=== PATIENT | female | born 1950 | race Two or more races ===

== ENCOUNTER 2020-03-19 17:24 | Emergency (ER) | payer MEDICARE, OTHER ==
[~2020-03-19] VITALS: Ht 167.6 cm; Wt 75.0 kg
[2020-03-19] MEDS ORDERED: POLY17PO47 PO (17:35)
[2020-03-19] MEDS ORDERED: TELM40 PO (17:35)
[2020-03-19] MEDS ORDERED: AMLO-257 PO (17:35)
[2020-03-19] MEDS ORDERED: ACET-66 PO (17:35)
[2020-03-19] MEDS ORDERED: MIRT-89 PO (17:35)
[2020-03-19] MEDS ORDERED: XALA2.5OS OU (17:35)
[2020-03-19] MEDS ORDERED: DOCU-202 PO (17:35)
[2020-03-19] MEDS ORDERED: AMIT75 PO (17:35)
[2020-03-19] MEDS ORDERED: GABA-1216 PO (17:35)
[2020-03-19] MEDS ORDERED: TRAM50TA4 PO (17:35)
[2020-03-19] MEDS ORDERED: TIMO.5OS OU (17:35)
[2020-03-19] MEDS ORDERED: CARV25 PO (17:35)
[2020-03-19] MEDS ORDERED: HYDR-2924 PO (17:35)
[2020-03-19] MEDS ORDERED: FOLI0.8T43 PO (17:35)
[2020-03-19 18:42] LABS: BASOPHILS % (AUTO) 0.9 % (0.0-2.0); EOSINOPHILS % (AUTO) 3.4 % (1.0-6.0); HEMOGLOBIN 11.5 g/dL (12.0-16.0); LYMPHOCYTES # (AUTO) 2.5 K/uL (1.0-4.8); LYMPHOCYTES % (AUTO) 24.3 % (22.0-44.0); MEAN CORPUSCULAR HEMOGLOBIN 33.6 pg (26.0-34.0); MEAN CORPUSCULAR HGB CONC 32.8 G/dL (31.0-37.0); MEAN CORPUSCULAR VOLUME 103 fL (80-100); MONOCYTES # (AUTO) 1.1 K/uL (0.1-1.0); NEUTROPHILS # (AUTO) 6.1 K/uL (1.8-7.7); NEUTROPHILS % (AUTO) 60.4 % (40.0-70.0); PLATELET COUNT (AUTO) 159 K/uL (150-450); RED BLOOD CELL COUNT(AUTO) 3.41 MIL/uL (4.00-5.20); RED CELL DISTRIBUTION WIDTH 15.5 % (11.5-14.5)
[2020-03-19 18:49] LABS: ANION GAP 11 mmol/L (8-16); CALCIUM, TOTAL 8.8 mg/dL (8.8-10.5); CARBON DIOXIDE 30 mmol/L (22-29); CHLORIDE 97 mmol/L (98-107); CREATININE 11.12 mg/dL (0.60-1.30); GLOMERULAR FILTR. RATE CALC 3 mL/min (>60); GLUCOSE,RANDOM 136 mg/dL (70-110); POTASSIUM 4.3 mmol/L (3.5-5.1); SODIUM SERUM 138 mmol/L (136-145); UREA NITROGEN, BLOOD 57 mg/dL (7-18)
[2020-03-19 18:55] LABS: ALANINE AMINOTRANSFERASE 14 U/L (12-78); ALBUMIN 2.9 g/dL (3.4-5.0); ALKALINE PHOSPHATASE 156 U/L (46-116); ASPARTATE AMINOTRANSFERASE 16 U/L (15-37); BILIRUBIN,TOTAL 0.4 mg/dL (0.1-1.0); TOTAL PROTEIN, SERUM 6.1 g/dL (6.4-8.2)
[2020-03-19 22:11] VITALS: BP 130/78
[2020-03-20 08:07] LABS: GLUCOSE,POINT OF CARE 145 MG/DL (70-110)
== END 2020-03-19 22:12 | disposition home or self-care (01) ==
LOC: EMS 17:24
DX: F32.9 Major depressive disorder, single episode, unspecified (principal); E11.9 Type 2 diabetes mellitus without complications; E78.00 Pure hypercholesterolemia, unspecified; I10 Essential (primary) hypertension
CPT/HCPCS: 36415; 80053; 82962; 85025; 99284; G0480